=== PATIENT | male | born 1965 | race Caucasian/White ===

== ENCOUNTER 2018-01-14 09:32 | Observation (INO) | payer MEDICAID, OTHER ==
[2018-01-14] VITALS (11 sets, daily range): BP systolic 140–169; BP diastolic 84–97; PULSE 77–107; RESP 19–21; TEMP 98–98.5; O2SAT 95–98
[~2018-01-14] VITALS: Ht 177.8 cm; Wt 79.1 kg
[~2018-01-14 09:32] MED LIST: 1-ME1LIQ PO; LABE300 PO; LISI-360 PO; MULTCAP14 PO
[2018-01-14] MEDS ORDERED: LISI-519 PO (09:49)
[2018-01-14] MEDS ORDERED: METO100T PO (09:49)
--- NOTE | 2018-01-14 10:15 | RADRPT ---
EXAM DATE/TIME: 01/14/2018 10:02 [facility] COMPARISON: No previous studies available for comparison. INDICATIONS : Chest pain today. MEDICAL HISTORY : Hypertension. Left kidney cancer. SURGICAL HISTORY : Left nephrectomy. Kevlar pig graft for AAA. ENCOUNTER: Initial ACUITY: 1 day PAIN SCORE: 7/10 LOCATION: Bilateral chest FINDINGS: A single view of the chest demonstrates the lungs to be symmetrically aerated without evidence of mas s, infiltrate or effusion. The patient has an aortic stent graft with extensive soft tissue lateral a nd posterior to the stent . I do not have old films for comparison Osseous structures are intact. CONCLUSION: Patient has an aortic stent with extensive aortic tissue lateral and superior to the stent. Compariso n with old films helpful when old films are unavailable. If there is concern for dissection CTA shoul d be performed. Quinn Frost MD on January 14, 2018 at 10:14 Board Certified Radiologist. This report was verified electronically.
[2018-01-14 10:40] LABS: AUTOMATED NEUTROPHIL # 7.9 TH/MM3 (1.8-7.7); BASOPHIL # 0.1 TH/MM3 (0-0.2); BASOPHIL % 1.2 % (0.0-2.0); EOSINOPHIL # 0.3 TH/MM3 (0-0.4); EOSINOPHIL % 2.5 % (0.0-4.0); HEMATOCRIT 40.3 % (39.0-51.0); HEMOGLOBIN 13.7 GM/DL (13.0-17.0); LYMPH % 13.9 % (9.0-44.0); LYMPHOCYTE # 1.5 TH/MM3 (1.0-4.8); MEAN CELL VOLUME 82.1 FL (80.0-100.0); MEAN CORPUSCULAR HEMOGLOBIN 27.9 PG (27.0-34.0); MEAN CORPUSCULAR HGB CONC 33.9 % (32.0-36.0); MEAN PLATELET VOLUME 7.8 FL (7.0-11.0); MONO % 7.8 % (0.0-8.0); MONOCYTE # 0.8 TH/MM3 (0-0.9); NEUT % 74.6 % (16.0-70.0); PLATELET COUNT 424 TH/MM3 (150-450); RED BLOOD COUNT 4.91 MIL/MM3 (4.50-5.90); RED CELL DISTRIBUTION WIDTH 17.9 % (11.6-17.2); WHITE BLOOD COUNT 10.6 TH/MM3 (4.0-11.0)
[2018-01-14 11:11] LABS: BICARBONATE 23.9 MEQ/L (21.0-32.0); BLOOD UREA NITROGEN 15 MG/DL (7-18); CALCIUM 9.2 MG/DL (8.5-10.1); CHLORIDE 105 MEQ/L (98-107); CREATININE 1.03 MG/DL (0.60-1.30); GLOMERULAR FILTRATION RATE 75 ML/MIN (>89); GLUCOSE,RANDOM 94 MG/DL (74-106); SODIUM (NA) 137 MEQ/L (136-145); TROPONIN I LESS THAN 0.02 NG/ML (0.02-0.05)
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
[2018-01-14] MEDS ORDERED: IOHEXOL 350 MG/ML 10 ML VIAL (for RAD DIAG) IVCONTRAST ONE (12:49)
--- NOTE | 2018-01-14 13:44 | RADRPT ---
EXAM DATE/TIME: 01/14/2018 12:39 [facility] COMPARISON: No previous studies available for comparison. INDICATIONS : Chest pain. History of aortic dissection repair. IV CONTRAST: 95 cc Omnipaque 350 (iohexol) IV RADIATION DOSE: 16.78 CTDIvol (mGy) MEDICAL HISTORY : Aneurysm, abdominal. Hypertension. Aortic valve replacement, aortic dissection SURGICAL HISTORY : Nephrectomy, left. Splenectomy. ENCOUNTER: Initial ACUITY: 2 days PAIN SCALE: 5/10 LOCATION: Left chest TECHNIQUE: Volumetric scanning was performed using a multi-row detector CT scanner. The data was post processed with a variety of visualization algorithms including full volume maximum intensity projection, multi -planar sliding thin slab reformation, curved planar reformation, and surface rendering techniques. Using automated exposure control and adjustment of the mA and/or kV according to patient size, radiat ion dose was kept as low as reasonably achievable to obtain optimal diagnostic quality images. DICOM format image data is available electronically for review and comparison. FINDINGS: LUNGS: There is no consolidation or pneumothorax. No concerning pulmonary nodule is visualized. No pleural fluid is present. Mild emphysema. MEDIASTINUM: No abnormally enlarged lymph nodes by CT criteria. No axillary or hilar abnormalities are identified. ABDOMEN: The liver and spleen are free of focal defects. The gallbladder and pancreas demonstrate no abnormali ty. The adrenal glands are normal. The right kidney demonstrate no evidence of solid renal mass or hy dronephrosis. Right renal low densities. Left nephrectomy. No free fluid or abdominal masses are iden tified. No para-aortic adenopathy is seen. Diverticulosis. PELVIS: No evidence of free fluid or pelvic mass. No abnormally enlarged inguinal or retroperitoneal lymph no phyllis are present. The bladder is unremarkable. THORACIC AORTA: There is a stent graft within the distal aortic arch, isthmus and descending thoracic aorta. Aneurysm al sac measures 5.5 x 6.8 cm in the descending thoracic aorta. There may be [id number] leaks lenard g the distal descending thoracic aorta, however no noncontrast images are available for comparison. ABDOMINAL AORTA: The aorta is normal in caliber without aneurysm or dissection. The renal arteries are patent bilater ally. The proximal celiac and superior mesenteric arteries are patent and normal in diameter. PELVIC VESSELS: The internal iliac and external iliac vessels are patent without aneurysm or stenosis. CONCLUSION: 1. Stent graft within the distal arch and descending thoracic aorta. Aneurysmal sac measures 6.8 x 5 .5 cm. 2. 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 Oscar Burns MD on January 14, 2018 at 13:32 Board Certified Radiologist. This report was verified electronically.
[2018-01-14] MEDS ORDERED: NALOXONE HCL 0.4 MG/ML AMP IV PUSH PRN ×2 (15:00→18:30)
[2018-01-14] MEDS ORDERED: MAGNESIUM HYDROXIDE SUSP 30 ML CUP PO PRN (15:00)
[2018-01-14] MEDS ORDERED: BISACODYL 10 MG SUPP RECTAL PRN (15:00)
[2018-01-14] MEDS ORDERED: LACTULOSE SYRUP 20 GM/30 ML CUP PO PRN (15:00)
[2018-01-14] MEDS ORDERED: SODIUM CHLORIDE 0.9% FLUSH 10 ML FLUSH IV FLUSH PRN (15:00)
[2018-01-14] MEDS ORDERED: ONDANSETRON HCL 4 MG/2 ML VIAL IVP PRN (15:00)
[2018-01-14] MEDS ORDERED: SENNOSIDES 8.6 MG TAB PO PRN (15:00)
[2018-01-14] MEDS: SODIUM CHLOR 0.45% 1000 ML INJ 1,000 ML IV SCH (15:30)
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
[2018-01-14] MEDS ORDERED: ENALAPRILAT 1.25 MG/ML VIAL IV PUSH PRN (18:15)
[2018-01-14] MEDS ORDERED: MORPHINE SULFATE 2 MG/ML INJ IV PUSH PRN (18:30)
[2018-01-14] MEDS ORDERED: ACETAMINOPHEN/HYDROcodone 325 MG/5 MG TAB PO PRN (18:30)
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
[2018-01-14] MEDS ORDERED: ALPRAZolam 0.5 MG TAB PO ONE (20:30)
[2018-01-14] MEDS ORDERED: ASPIRIN EC 81 MG TABEC PO ONE (20:30)
[2018-01-14] MEDS ORDERED: amLODIPine BESYLATE 5 MG TAB PO ONE (20:30)
[2018-01-14] MEDS: METOPROLOL TARTRATE 100 MG TAB PO SCH (20:50)
[2018-01-14] MEDS: SODIUM CHLORIDE 0.9% FLUSH 10 ML FLUSH IV FLUSH SCH (20:51)
[2018-01-15] VITALS (25 sets, daily range): BP systolic 91–135; BP diastolic 51–83; PULSE 59–88; RESP 18–20; TEMP 97.2–98.3; O2SAT 95–97
[2018-01-15] MEDS: NITROGLYCERIN 2% OINT 1 GM PACKET TOPICAL SCH ×5 (02:38→23:08)
[2018-01-15] MEDS: SODIUM CHLOR 0.45% 1000 ML INJ 1,000 ML IV SCH ×3 (04:20→17:36)
[2018-01-15 07:28] LABS: AUTOMATED NEUTROPHIL # 7.2 TH/MM3 (1.8-7.7); BASOPHIL # 0.1 TH/MM3 (0-0.2); BASOPHIL % 1.4 % (0.0-2.0); EOSINOPHIL # 0.6 TH/MM3 (0-0.4); EOSINOPHIL % 6.1 % (0.0-4.0); HEMATOCRIT 40.3 % (39.0-51.0); HEMOGLOBIN 13.5 GM/DL (13.0-17.0); LYMPH % 14.4 % (9.0-44.0); LYMPHOCYTE # 1.5 TH/MM3 (1.0-4.8); MEAN CELL VOLUME 82.3 FL (80.0-100.0); MEAN CORPUSCULAR HEMOGLOBIN 27.5 PG (27.0-34.0); MEAN CORPUSCULAR HGB CONC 33.4 % (32.0-36.0); MONO % 9.3 % (0.0-8.0); NEUT % 68.8 % (16.0-70.0); PLATELET COUNT 404 TH/MM3 (150-450); RED BLOOD COUNT 4.89 MIL/MM3 (4.50-5.90); RED CELL DISTRIBUTION WIDTH 18.2 % (11.6-17.2); WHITE BLOOD COUNT 10.5 TH/MM3 (4.0-11.0)
[2018-01-15 07:47] LABS: ALBUMIN 3.3 GM/DL (3.4-5.0); AST (GOT) 12 U/L (15-37); BICARBONATE 24.5 MEQ/L (21.0-32.0); BLOOD UREA NITROGEN 13 MG/DL (7-18); CALCIUM 9.1 MG/DL (8.5-10.1); CHLORIDE 104 MEQ/L (98-107); CREATININE 0.91 MG/DL (0.60-1.30); GLOMERULAR FILTRATION RATE 87 ML/MIN (>89); GLUCOSE,RANDOM 84 MG/DL (74-106); SODIUM (NA) 138 MEQ/L (136-145)
[2018-01-15 07:52] LABS: ALKALINE PHOSPHATASE 81 U/L (45-117); ALT (GPT) 14 U/L (12-78); TOTAL BILIRUBIN ADULT 0.4 MG/DL (0.2-1.0); TOTAL PROTEIN 7.2 GM/DL (6.4-8.2)
[2018-01-15] MEDS: SODIUM CHLORIDE 0.9% FLUSH 10 ML FLUSH IV FLUSH SCH ×2 (09:00→21:00)
[2018-01-15] MEDS: ASPIRIN EC 81 MG TABEC PO SCH (09:04)
[2018-01-15] MEDS: METOPROLOL TARTRATE 100 MG TAB PO SCH ×2 (09:04→21:00)
[2018-01-15] MEDS: amLODIPine BESYLATE 5 MG TAB PO SCH (09:04)
[2018-01-15] MEDS: LISINOPRIL 5 MG TAB PO SCH (09:05)
[2018-01-15] MEDS ORDERED: ALPRAZolam 0.25 MG TAB PO ONE (11:15)
--- NOTE | 2018-01-15 12:07 | EKG ---
Date Performed: 01/14/2018 Time Performed: 09:40:51 PTAGE: 52 years EKG: SINUS TACHYCARDIA NONSPECIFIC T-WAVE ABNORMALITY ABNORMAL RHYTHM ECG PREVIOUS TRACING 10/20/14 When compared to the prior EKG, the patient is now tachycardic. DOCTOR: Nancy Lopez Interpretating Date/Time 01/15/2018 12:05:58
--- NOTE | 2018-01-15 12:07 | EKG ---
Date Performed: 01/14/2018 Time Performed: 16:51:28 PTAGE: 52 years EKG: Sinus arrhythmia Normal ECG PREVIOUS TRACING : 01/14/18 When compared to prior EKG, the patient is no longer tachycardic. DOCTOR: Nancy Lopez Interpretating Date/Time 01/15/2018 12:06:32
--- NOTE | 2018-01-15 12:32 | MB ---
cc: Naga Lee MD DATE OF CONSULT: HISTORY OF PRESENT ILLNESS: Francois is a very pleasant 52-year-old gentleman status post aortic arch repair due to aneurysm with a graft. HeDeveloped chest pain today like a fist in his left chest, dull pressure like, severe, currently mild to moderate and he is resting comfortably in bedin no acute distress, getting ready to eat dinner. He does smoke. His chest pain is associated with some dyspnea. He otherwise denies any fevers, chills, cough, GI or bleeding, PND or orthopnea. PAST MEDICAL HISTORY: As per history of present illness. He has a history of thoracic aortic aneurysm with dissection, left kidney cancer, status post Keflar pig graft to the aorta for aneurysm repair, status post cholecystectomy, splenectomy, left kidney removed. SOCIAL HISTORY: He drinks alcohol. He smokes half pack of cigarettes a day and he smokes marijuana. ALLERGIES: NONE. MEDICATIONS PRIOR TO ADMISSION: Metoprolol 100 mg b.i.d., lisinopril 5 mg daily. MEDICATIONS IN THE HOSPITAL: Lisinopril 5 mg daily, metoprolol 100 b.i.d. PHYSICAL EXAMINATION: VITAL SIGNS: Blood pressure 148/97, pulse 80, respiratory rate 21, temperature 98.0. GENERAL: He is alert and oriented x 3 in no acute distress. NECK: Supple, no JVD, no bruit. CARDIOVASCULAR: Normal S1, S2, no murmurs, rubs or gallops. LUNGS: Clear to auscultation bilaterally. ABDOMEN: Soft, nontender, nondistended with positive bowel sounds. EXTREMITIES: No lower extremity edema. LABORATORY DATA: White count 10.6, hemoglobin 13.7, hematocrit 40.3, platelet count 424. Troponin less than 0.02 x 2. Sodium 137, potassium 4.4, chloride 105, bicarb 23.9, BUN 15, creatinine 1.03. DIAGNOSTIC DATA: CTA of the aorta stent graft within the distal arch of descending thoracic aorta aneurysmal sac measuring 6.8 x 5.5 cm, probable type 1 endograft leaks within the distal descending thoracic aorta within the aneurysmal sac. Chest x-ray: "The patient has an aortic stent with extensive aortic tissue lateral and superior to the stent, comparison with old films helpful but old films are unavailable. If there is concern for dissection CTA should be performed." Initial EKG shows sinus tachycardia at 105 beats per minute otherwise normal and repeat EKG shows normal sinus rhythm at 75 beats per minute, repolarization abnormality. FINAL DIAGNOSES: 1. Chest pain. 2. Tobacco use. 3. Thoracic aortic aneurysm repair with type 1 endoleak. 4. Hypertension. 5. History of renal cell carcinoma, status post nephrectomy. DISCUSSION: At this point in time the patient has no objective evidence of ischemia. He has a type 1 endoleak. Will need to discuss with cardiothoracic surgery risks and benefits of starting aspirin 81 mg daily. Strongly recommend smoking cessation. Will add nitro paste and Norvasc for better blood pressure control. As long as he is cleared by cardiothoracic surgery, recommend a Lexiscan sestamibi. Will try to treat him medically and noninvasively due to his history of nephrectomy. Naga Lee MD AWC/rt , 07:58 PM , 09:17 PM
--- NOTE | 2018-01-15 13:25 | PD.CARD.PN ---
Subjective Subjective Remarks chest pain better Objective Medications Current Medications Medications (Trade) Dose Ordered Sig/Alber Route Start Time Stop Time Status Last Admin Sodium Chloride 1,000 ml @ 75 mls/hr [id number] IV 01/14/18 15:00 01/15/18 06:45 (NS Flush) 2 ml UNSCH PRN IV FLUSH 01/14/18 15:00 (NS Flush) 2 ml BID IV FLUSH 01/14/18 21:00 01/14/18 20:51 (Zofran Inj) 4 mg Q6H PRN IVP 01/14/18 15:00 (Milk Of Magnesia Liq) 30 ml Q12H PRN PO 01/14/18 15:00 (Senokot) 17.2 mg Q12H PRN PO 01/14/18 15:00 (Dulcolax Supp) 10 mg DAILY PRN RECTAL 01/14/18 15:00 (Lactulose Liq) 30 ml DAILY PRN PO 01/14/18 15:00 (Prinivil) 5 mg DAILY PO 01/15/18 09:00 01/15/18 09:05 (Lopressor) 100 mg BID PO 01/14/18 21:00 01/15/18 09:04 (Vasotec Inj) 1.25 mg Q6H PRN IV PUSH 01/14/18 18:15 ([place] 5-325 Mg) 1 tab Q4H PRN PO 01/14/18 18:30 ([place] 7.5-325 Mg) 1 tab Q4H PRN PO 01/14/18 18:30 (Narcan Inj) 0.4 mg UNSCH PRN IV PUSH 01/14/18 18:30 (Morphine Inj) 4 mg Q3H PRN IV PUSH 01/14/18 19:15 (Nitroglycerin 2% Oint) 2 inch Q6HR TOPICAL 01/15/18 00:00 01/15/18 11:19 (Norvasc) 5 mg DAILY PO 01/15/18 09:00 01/15/18 09:04 (Ecotrin Ec) 81 mg DAILY PO 01/15/18 09:00 01/15/18 09:04 Vital Signs / I&O Vital Signs Date Time Temp Pulse Resp B/P (MAP) Pulse Ox O2 Delivery O2 Flow Rate FiO2 01/15/18 12:42 68 01/15/18 12:40 97.4 68 20 130/70 (90) 01/15/18 11:07 88 01/15/18 10:05 86 01/15/18 09:11 98.0 78 20 128/74 (92) 96 01/15/18 09:06 88 01/15/18 08:21 78 01/15/18 06:00 60 01/15/18 05:00 62 01/15/18 04:00 98.1 59 20 135/80 (98) 96 01/15/18 04:00 59 01/15/18 03:00 71 01/15/18 02:00 62 01/15/18 01:00 60 01/15/18 00:00 98.3 69 20 123/83 (96) 97 01/15/18 00:00 61 01/14/18 23:00 77 01/14/18 22:00 78 01/14/18 21:00 82 01/14/18 20:00 98.4 79 20 169/94 (119) 96 01/14/18 20:00 79 01/14/18 19:00 88 01/14/18 17:10 98.0 80 21 148/97 (114) 95 01/14/18 16:00 01/14/18 15:30 91 19 148/90 (109) 97 Room Air 01/14/18 14:00 90 19 140/87 (104) 96 Room Air I/O 01/14/18 01/14/18 01/14/18 01/15/18 01/15/18 01/15/18 07:00 15:00 23:00 07:00 15:00 23:00 Intake Total 0 ml 0 ml Output Total 1000 ml Balance -1000 ml 0 ml Intake Oral 0 ml IV Total 0 ml Output Urine Total 1000 ml # Voids 3 # Bowel Movements 0 Physical Exam GENERAL: SKIN: Warm and dry. HEAD: Normocephalic. EYES: No scleral icterus. No injection or drainage. NECK: Supple, trachea midline. No JVD or lymphadenopathy. CARDIOVASCULAR: Regular rate and rhythm without murmurs, gallops, or rubs. RESPIRATORY: Breath sounds equal bilaterally. No accessory muscle use. GASTROINTESTINAL: Abdomen soft, non-tender, nondistended. MUSCULOSKELETAL: No cyanosis, or edema. BACK: Nontender without obvious deformity. No CVA tenderness. Laboratory Laboratory Tests Test 01/14/18 15:35 01/14/18 19:48 01/15/18 06:23 Troponin I LESS THAN 0.02 NG/ML LESS THAN 0.02 NG/ML White Blood Count 10.5 TH/MM3 Red Blood Count 4.89 MIL/MM3 Hemoglobin 13.5 GM/DL Hematocrit 40.3 % Mean Corpuscular Volume 82.3 FL Mean Corpuscular Hemoglobin 27.5 PG Mean Corpuscular Hemoglobin Concent 33.4 % Red Cell Distribution Width 18.2 % Platelet Count 404 TH/MM3 Mean Platelet Volume 8.0 FL Neutrophils (%) (Auto) 68.8 % Lymphocytes (%) (Auto) 14.4 % Monocytes (%) (Auto) 9.3 % Eosinophils (%) (Auto) 6.1 % Basophils (%) (Auto) 1.4 % Neutrophils # (Auto) 7.2 TH/MM3 Lymphocytes # (Auto) 1.5 TH/MM3 Monocytes # (Auto) 1.0 TH/MM3 Eosinophils # (Auto) 0.6 TH/MM3 Basophils # (Auto) 0.1 TH/MM3 CBC Comment DIFF FINAL Differential Comment Blood Urea Nitrogen 13 MG/DL Creatinine 0.91 MG/DL Random Glucose 84 MG/DL Total Protein 7.2 GM/DL Albumin 3.3 GM/DL Calcium Level 9.1 MG/DL Alkaline Phosphatase 81 U/L Aspartate Amino Transf (AST/SGOT) 12 U/L Alanine Aminotransferase (ALT/SGPT) 14 U/L Total Bilirubin 0.4 MG/DL Sodium Level 138 MEQ/L Potassium Level 3.9 MEQ/L Chloride Level 104 MEQ/L Carbon Dioxide Level 24.5 MEQ/L Anion Gap 10 MEQ/L Estimat Glomerular Filtration Rate 87 ML/MIN Assessment and Plan Problem List: (1) Chest pain ICD Codes: R07.9 - Chest pain, unspecified Status: Acute (2) Hypertension ICD Codes: I10 - Essential (primary) hypertension Status: Acute (3) Leakage of aortic graft ICD Codes: T82.330A - Leakage of aortic (bifurcation) graft (replacement), initial encounter Status: Acute Assessment and Plan 1.) chest pain - improved with better bp control, continue norvasc, ntp, metoprolol, lisinopril; rec lexiscan sestamibi, f/u echo 2.) Thoracic aneurysm - with type I endoleak, f/u Dr Hopper, continue aspirin, metoprolol, start lipitor, dc tobacco Problem Qualifiers (1) Chest pain: Qualified Codes: R07.9 - Chest pain, unspecified (2) Hypertension: Qualified Codes: I10 - Essential (primary) hypertension (3) Leakage of aortic graft: Qualified Codes: T82.330A - Leakage of aortic (bifurcation) graft (replacement) , initial encounter Naga Lee MD Jan 15, 2018 13:25
--- NOTE | 2018-01-15 14:24 | ECHRPT ---
Indication: chest pain CONCLUSIONS The left ventricular systolic function is hyperdynamic with an estimated ejection fraction in the ra nge of 65- 70%. Normal left ventricular size. Wall thickness is normal. No regional wall motion abnormalities are present. Mild aortic dilatation at the level of the sinuses of Valsalva. Mildly dilated proximal ascending aorta. Severely dilated descending thoracic aorta. BP: 128 / 74 HR: 86 Rhythm: Sinus MEASUREMENTS (Male / Female) Normal Values Technical Quality:Good 2D ECHO LV Diastolic Diameter PLAX 4.2 cm 4.2 - 5.9 / 3.9 - 5.3 cm LV Systolic Diameter PLAX 2.8 cm IVS Diastolic Thickness 1.1 cm 0.6 - 1.0 / 0.6 - 0.9 cm LVPW Diastolic Thickness 1.1 cm 0.6 - 1.0 / 0.6 - 0.9 cm LV Relative Wall Thickness 0.5 LVOT Diameter 2.0 cm LA Systolic Diameter LX 2.7 cm 3.0 - 4.0 / 2.7 - 3.8 cm M-MODE Aortic Root Diameter MM 3.4 cm LA Systolic Diameter MM 1.9 cm LA Ao Ratio MM 0.6 AV Cusp Separation MM 2.2 cm DOPPLER AV Peak Velocity 111.0 cm/s AV Peak Gradient 4.9 mmHg LVOT Peak Velocity 85.4 cm/s LVOT Peak Gradient 2.9 mmHg AV Area Cont Eq pk 2.4 cm MV Area PHT 2.8 cm Mitral E Point Velocity 50.3 cm/s Mitral A Point Velocity 47.4 cm/s Mitral E to A Ratio 1.1 LV E' Lateral Velocity 9.4 cm/s Mitral E to LV E' Lateral Ratio 5.4 LV E' Septal Velocity 5.3 cm/s Mitral E to LV E' Septal Ratio 9.6 PV Peak Velocity 77.4 cm/s PV Peak Gradient 2.4 mmHg FINDINGS LEFT VENTRICLE The left ventricular systolic function is hyperdynamic with an estimated ejection fraction in the ra nge of 65- 70%. Normal left ventricular size. Wall thickness is normal. No regional wall motion abnormalities are present. RIGHT VENTRICLE Normal right ventricular size and systolic function. LEFT ATRIUM The left atrial size is normal. RIGHT ATRIUM The right atrial size is normal. ATRIAL SEPTUM Normal atrial septal thickness without atrial level shunting by limited color doppler interrogation. AORTA Mild aortic dilatation at the level of the sinuses of Valsalva. Mildly dilated proximal ascending aorta. Severely dilated descending thoracic aorta. MITRAL VALVE Structurally normal mitral valve. No mitral valve stenosis or regurgitation. AORTIC VALVE Trileaflet aortic valve. No aortic valve stenosis or regurgitation. TRICUSPID VALVE Structurally normal tricuspid valve. No tricuspid valve stenosis or regurgitation. PULMONARY VALVE The pulmonary valve is not well visualized. VESSELS The inferior vena cava is normal in size. PERICARDIUM No pericardial effusion. Naga Lee MD, FACC, [facility] (Electronically Signed) Final Date:15 January 2018 14:23
[2018-01-15] MEDS ORDERED: ATORVASTATIN 10 MG TAB PO ONE (14:30)
--- NOTE | 2018-01-15 15:42 | HHI.PR ---
Subjective Remarks Patient seen this afternoon around 1 PM. Says he is feeling all right. Denies any chest pain currently. Denies any nausea or vomiting. Objective Vital Signs Date Time Temp Pulse Resp B/P (MAP) Pulse Ox O2 Delivery O2 Flow Rate FiO2 01/15/18 14:52 01/15/18 14:15 78 01/15/18 13:48 68 01/15/18 12:42 68 01/15/18 12:40 97.4 68 20 130/70 (90) 01/15/18 11:07 88 01/15/18 10:05 86 01/15/18 09:11 98.0 78 20 128/74 (92) 96 01/15/18 09:06 88 01/15/18 08:21 78 01/15/18 06:00 60 01/15/18 05:00 62 01/15/18 04:00 98.1 59 20 135/80 (98) 96 01/15/18 04:00 59 01/15/18 03:00 71 01/15/18 02:00 62 01/15/18 01:00 60 01/15/18 00:00 98.3 69 20 123/83 (96) 97 01/15/18 00:00 61 01/14/18 23:00 77 01/14/18 22:00 78 01/14/18 21:00 82 01/14/18 20:00 98.4 79 20 169/94 (119) 96 01/14/18 20:00 79 01/14/18 19:00 88 01/14/18 17:10 98.0 80 21 148/97 (114) 95 01/14/18 16:00 I/O 01/14/18 01/14/18 01/14/18 01/15/18 01/15/18 01/15/18 07:00 15:00 23:00 07:00 15:00 23:00 Intake Total 0 ml 0 ml Output Total 1000 ml Balance -1000 ml 0 ml Intake Oral 0 ml IV Total 0 ml Output Urine Total 1000 ml # Voids 3 # Bowel Movements 0 Result Diagram: 01/15/1862201/15/18622 Objective Remarks GENERAL: Patient sitting up in bed. Appears comfortable. Alert and oriented 3. SKIN: Warm and dry. HEAD: Normocephalic. EYES: No scleral icterus. No injection or drainage. NECK: Supple, trachea midline. No JVD or lymphadenopathy. CARDIOVASCULAR: Regular rate and rhythm without murmurs, gallops, or rubs. RESPIRATORY: Breath sounds equal bilaterally. No accessory muscle use. GASTROINTESTINAL: Abdomen soft, non-tender, nondistended. MUSCULOSKELETAL: No cyanosis, or edema. BACK: Nontender without obvious deformity. No CVA tenderness. A/P Assessment and Plan //Chest pain //Endovascular aortic aneurysmal stent leak. = CT chest and abdomen with thoracic abdominal aortic aneurysm with endovascular stent, possible endovascular stent leak. Vascular surgery consulted and following. Appreciate assistance. Will monitor blood pressure closely. = EKG sinus rhythm with no ST elevation. We will monitor EKGs and troponins. Troponins negative so far. = Patient reports history of previous nonnegative stress test. Will request outside records. Consult cardiology. = Patient cleared for discharge by vascular surgery. Follow-up with vascular surgery as outpatient. = Chest pain has resolved. Will order Lexiscan as per cardiology. Appreciate assistance. //Tobacco abuse. Cessation counseling provided. Discharge Planning Discharge when cleared by cardiology. [place] scan pending. Ray Kinney MD Jan 15, 2018 15:42
[2018-01-15] MEDS: ACETAMINOPHEN/HYDROcodone 325 MG/7.5 MG TAB PO PRN (19:52)
[2018-01-16] VITALS (24 sets, daily range): BP systolic 120–147; BP diastolic 71–96; PULSE 54–100; RESP 18–20; TEMP 98–98.4; O2SAT 95–98
[2018-01-16] MEDS: ACETAMINOPHEN/HYDROcodone 325 MG/7.5 MG TAB PO PRN ×2 (03:23→14:26)
[2018-01-16] MEDS: NITROGLYCERIN 2% OINT 1 GM PACKET TOPICAL SCH ×3 (06:00→17:23)
[2018-01-16] MEDS: SODIUM CHLORIDE 0.9% FLUSH 10 ML FLUSH IV FLUSH SCH ×2 (09:00→19:57)
[2018-01-16] MEDS: METOPROLOL TARTRATE 100 MG TAB PO SCH ×2 (09:04→19:57)
[2018-01-16] MEDS: SODIUM CHLOR 0.45% 1000 ML INJ 1,000 ML IV SCH ×2 (09:04→20:05)
[2018-01-16] MEDS: amLODIPine BESYLATE 5 MG TAB PO SCH (09:05)
[2018-01-16] MEDS: LISINOPRIL 5 MG TAB PO SCH (09:05)
[2018-01-16] MEDS: ASPIRIN EC 81 MG TABEC PO SCH (09:05)
[2018-01-16] MEDS ORDERED: REGADENOSON INJ 0.4 MG/5 ML SYR ONE (11:30)
--- NOTE | 2018-01-16 14:18 | RADRPT ---
EXAM DATE/TIME: 01/16/2018 11:17 [place] COMPARISON: No previous studies available for comparison. INDICATIONS : Chest pain. Abnormal EKG. DOSE: 25.4 mCi Tc99m Myoview at stress. 8.8 mCi Tc99m Myoview at rest. 0.4 mg Lexiscan STRESS SYMPTOMS: Shortness of breath, chest pressure. EJECTION FRACTION: 43% MEDICAL HISTORY : Aneurysm, abdominal. Hypertension. Left kidney cancer. SURGICAL HISTORY : Splenectomy. Cholecystectomy. Abdominal aortic aneurysm repair. ENCOUNTER: Initial ACUITY: 1 day PAIN SCALE: 3/10 LOCATION: chest TECHNIQUE: The patient underwent pharmacologic stress with infusion of prescribed dose. Continuous ECG tracing was monitored during stress. Gated SPECT imaging was performed after stress and conventional SPECT i maging was performed at rest. The examination was performed on a SPECT/CT scanner, both attenuation and non-corrected datasets were reviewed. FINDINGS: The best perfused myocardium is the anterior and lateral wall. There are no fixed defects to suggest infarction. There is no diffusion suggest ischemia. Ejection fraction is globally depressed at 43 %. CONCLUSION: Depressed ejection fraction of 43% with global hypokinesis. Negative for stress-induced ischemia.. RISK CATEGORY: Intermediate (1-3% Annual Mortality Rate) Fabricio Cifuentes MD FACR on January 16, 2018 at 14:14 Board Certified Radiologist. This report was verified electronically.
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
--- NOTE | 2018-01-16 16:22 | PD.CARD.PN ---
Subjective Subjective Remarks chest pain better Objective Medications Current Medications Medications (Trade) Dose Ordered Sig/Alber Route Start Time Stop Time Status Last Admin Sodium Chloride 1,000 ml @ 75 mls/hr [id number] IV 01/14/18 15:00 01/16/18 09:04 (NS Flush) 2 ml UNSCH PRN IV FLUSH 01/14/18 15:00 (NS Flush) 2 ml BID IV FLUSH 01/14/18 21:00 01/14/18 20:51 (Zofran Inj) 4 mg Q6H PRN IVP 01/14/18 15:00 (Milk Of Magnesia Liq) 30 ml Q12H PRN PO 01/14/18 15:00 (Senokot) 17.2 mg Q12H PRN PO 01/14/18 15:00 (Dulcolax Supp) 10 mg DAILY PRN RECTAL 01/14/18 15:00 (Lactulose Liq) 30 ml DAILY PRN PO 01/14/18 15:00 (Prinivil) 5 mg DAILY PO 01/15/18 09:00 01/16/18 09:05 (Lopressor) 100 mg BID PO 01/14/18 21:00 01/16/18 09:04 (Vasotec Inj) 1.25 mg Q6H PRN IV PUSH 01/14/18 18:15 ([place] 5-325 Mg) 1 tab Q4H PRN PO 01/14/18 18:30 ([place] 7.5-325 Mg) 1 tab Q4H PRN PO 01/14/18 18:30 01/16/18 14:26 (Narcan Inj) 0.4 mg UNSCH PRN IV PUSH 01/14/18 18:30 (Morphine Inj) 4 mg Q3H PRN IV PUSH 01/14/18 19:15 (Nitroglycerin 2% Oint) 2 inch Q6HR TOPICAL 01/15/18 00:00 01/16/18 14:26 (Norvasc) 5 mg DAILY PO 01/15/18 09:00 01/16/18 09:05 (Ecotrin Ec) 81 mg DAILY PO 01/15/18 09:00 01/16/18 09:05 (Lipitor) 10 mg HS PO 01/16/18 21:00 Vital Signs / I&O Vital Signs Date Time Temp Pulse Resp B/P (MAP) Pulse Ox O2 Delivery O2 Flow Rate FiO2 01/16/18 15:00 74 01/16/18 14:19 98.2 74 20 146/90 (108) 98 01/16/18 14:00 70 01/16/18 13:00 66 01/16/18 10:00 74 01/16/18 09:00 66 01/16/18 08:55 98.0 66 20 147/96 (113) 95 01/16/18 07:00 91 01/16/18 06:00 65 01/16/18 05:03 75 01/16/18 04:27 17 01/16/18 04:02 56 01/16/18 03:01 76 01/16/18 03:00 98.1 55 18 120/88 (99) 97 01/16/18 02:05 62 01/16/18 01:03 67 01/16/18 00:00 54 01/15/18 23:00 67 01/15/18 23:00 97.2 67 18 91/51 (64) 96 01/15/18 22:00 63 01/15/18 21:00 74 01/15/18 20:00 88 01/15/18 19:00 83 01/15/18 19:00 97.8 85 18 96/59 (71) 95 01/15/18 18:08 80 01/15/18 17:34 84 I/O 01/15/18 01/15/18 01/15/18 01/16/18 01/16/18 01/16/18 07:00 15:00 23:00 07:00 15:00 23:00 Intake Total 0 ml 0 ml 240 ml 950 ml Output Total 1000 ml 750 ml Balance -1000 ml 0 ml -510 ml 950 ml Intake Oral 0 ml 240 ml IV Total 0 ml 950 ml Output Urine Total 1000 ml 750 ml # Voids 3 # Bowel Movements 0 Physical Exam GENERAL: SKIN: Warm and dry. HEAD: Normocephalic. EYES: No scleral icterus. No injection or drainage. NECK: Supple, trachea midline. No JVD or lymphadenopathy. CARDIOVASCULAR: Regular rate and rhythm without murmurs, gallops, or rubs. RESPIRATORY: Breath sounds equal bilaterally. No accessory muscle use. GASTROINTESTINAL: Abdomen soft, non-tender, nondistended. MUSCULOSKELETAL: No cyanosis, or edema. BACK: Nontender without obvious deformity. No CVA tenderness. Imaging Last 24 hours Impressions Myocardial Perfusion Scan Nuc Med 01/16/18 0000 Signed Impressions: Service Date/Time: Tuesday, January 16, 2018 11:17 - CONCLUSION: Depressed ejection fraction of 43%% with global hypokinesis. Negative for stress- induced ischemia.. RISK CATEGORY: Intermediate (1-3%% Annual Mortality Rate) Fabricio Cifuentes MD FACR Assessment and Plan Problem List: (1) Chest pain ICD Codes: R07.9 - Chest pain, unspecified Status: Acute (2) Hypertension ICD Codes: I10 - Essential (primary) hypertension Status: Acute (3) Leakage of aortic graft ICD Codes: T82.330A - Leakage of aortic (bifurcation) graft (replacement), initial encounter Status: Acute Assessment and Plan 1.) chest pain - improved with better bp control, continue norvasc, ntp, metoprolol, lisinopril; rec lexiscan sestamibi, no ischemia on mps, ok to dc from cv standpoint 2.) Thoracic aneurysm - with type I endoleak, f/u Dr Hopper, continue aspirin, metoprolol, start lipitor, dc tobacco Problem Qualifiers (1) Chest pain: Qualified Codes: R07.9 - Chest pain, unspecified (2) Hypertension: Qualified Codes: I10 - Essential (primary) hypertension (3) Leakage of aortic graft: Qualified Codes: T82.330A - Leakage of aortic (bifurcation) graft (replacement) , initial encounter Naga Lee MD Jan 16, 2018 16:22
[2018-01-16] MEDS: MORPHINE SULFATE 4 MG/ML INJ IV PUSH PRN (20:01)
[2018-01-16] MEDS ORDERED: ATORVASTATIN 10 MG TAB PO SCH (21:00)
[2018-01-17] VITALS (17 sets, daily range): BP systolic 91–187; BP diastolic 59–121; PULSE 58–72; RESP 18–19; TEMP 98–98.3; O2SAT 95–98
[2018-01-17] MEDS: NITROGLYCERIN 2% OINT 1 GM PACKET TOPICAL SCH ×2 (05:04)
[2018-01-17] MEDS: MORPHINE SULFATE 4 MG/ML INJ IV PUSH PRN (05:04)
[2018-01-17] MEDS: METOPROLOL TARTRATE 100 MG TAB PO SCH (09:27)
[2018-01-17] MEDS: ASPIRIN EC 81 MG TABEC PO SCH (09:27)
[2018-01-17] MEDS: amLODIPine BESYLATE 5 MG TAB PO SCH (09:28)
[2018-01-17] MEDS: SODIUM CHLORIDE 0.9% FLUSH 10 ML FLUSH IV FLUSH SCH (09:28)
[2018-01-17] MEDS: LISINOPRIL 5 MG TAB PO SCH (09:28)
[2018-01-17] MEDS ORDERED: LIPI10TA PO (11:13)
[2018-01-17] MEDS ORDERED: ECASA81 PO (11:13)
[2018-01-17] MEDS ORDERED: METO100T PO (11:13)
[2018-01-17] MEDS ORDERED: LISI-519 PO (11:13)
[2018-01-17] MEDS ORDERED: ISOSORBIDE MONONITRATE 30 MG CR TAB (IMDUR) PO ONE ×2 (11:15→14:00)
[2018-01-17] MEDS ORDERED: ISOS30TA3 PO ×2 (11:15→14:14)
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
[2018-01-18] MEDS ORDERED: ISOSORBIDE MONONITRATE 30 MG CR TAB (IMDUR) PO SCH ×2 (07:00)
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
== END 2018-01-17 14:35 | disposition home or self-care (01) ==
LOC: NEPC 09:32 → NEDA 14:54 → HCIS 16:06
PROVIDERS: ADMIT Internal Medicine; ATTEND Internal Medicine
DX: R07.89 Other chest pain (principal); T82.330A Leakage of aortic (bifurcation) graft (replacement), initial encounter; R06.02 Shortness of breath; R06.00 Dyspnea, unspecified; F43.20 Adjustment disorder, unspecified; I10 Essential (primary) hypertension; I71.6 Thoracoabdominal aortic aneurysm, without rupture; I71.2 Thoracic aortic aneurysm, without rupture; R00.0 Tachycardia, unspecified; I49.9 Cardiac arrhythmia, unspecified; F17.210 Nicotine dependence, cigarettes, uncomplicated; Z59.0 Homelessness; Z85.528 Personal history of other malignant neoplasm of kidney; Z90.5 Acquired absence of kidney; Z90.81 Acquired absence of spleen
CPT/HCPCS: 71045; 71275; 74174; 78452; 80048; 80053; 82550; 82552; 84484; 85025; 93005; 93017; 93306; 96361; 96374; 96376; 97162; 99285; A9502; G0378; J2270; J2785; Q9967

== ENCOUNTER 2018-02-04 06:31 | Inpatient (IN) | payer MEDICAID ==
[~2018-02-04 06:31] MED LIST changes: -1-ME1LIQ PO; +ECASA81 PO; +ISOS30TA3 PO; -LABE300 PO; +LIPI10TA PO; -LISI-360 PO; +LISI-519 PO; +METO100T PO; -MULTCAP14 PO
[2018-02-04] MEDS ORDERED: CHLORHEXIDINE GLUCONATE 2 % 1 PACK (2 CLOTHS) TOPICAL PRN (07:15)
[2018-02-04] MEDS ORDERED: METOPROLOL TARTRATE 25 MG TAB PO PRN (07:15)
[2018-02-04] MEDS ORDERED: SODIUM CHLORID 0.9% 500 ML IV PRN (07:15)
[2018-02-04] MEDS ORDERED: POVIDONE IODINE 5% (ANTISEPSIS KIT) 4 APPLICATIONS EACH NARE PRN (07:15)
[2018-02-04] MEDS ORDERED: LACTATED RINGER'S 1000 ML IV PRN (07:15)
[2018-02-04] MEDS ORDERED: PROTAMINE SULFATE 50 MG/5 ML VIAL ONE (07:48)
[2018-02-04] MEDS ORDERED: HEPARIN-NS/PF INJ 500 ML ONE (07:49)
[2018-02-04] MEDS ORDERED: HEPARIN SODIUM - IV 10,000 UNITS/10 ML VIAL ONE (07:49)
[2018-02-04] MEDS ORDERED: ceFAZolin 2 GM PREMIX 50 ML ONE (07:49)
--- NOTE | 2018-02-04 08:35 | PD.VS.PN ---
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 I have explained the procedure in detail and discussed the risks, benefits, and potential complications. All questions have been answered. Isaiah Hopper MD Feb 04, 2018 08:35
[2018-02-04] MEDS ORDERED: fentaNYL CITRATE 250 MCG/5 ML AMP ONE (09:15)
[2018-02-04] MEDS ORDERED: NITROGLYCERIN INJ 5 ML ONE (09:53)
[2018-02-04] MEDS ORDERED: IOHEXOL 300 INJ 50 ML IV ONE (09:55)
--- NOTE | 2018-02-04 10:32 | HHI.PR ---
cc: Isaiah Hopper MD Immediate Post Op Note Procedure Date: Feb 04, 2018 Pre Op Diagnosis: Type Ia endoleak after TEVAR Post Op Diagnosis: Type Ia endoleak after TEVAR Surgeon: Isaiah Hopper Consumer Insights Specialist(s): none Procedure: 1. TEVAR ([id number]) 2. IVUS 3. L BILINGUAL LEGAL ASSISTANT Perclose 4. R BILINGUAL LEGAL ASSISTANT Angioseal Findings: successful deployment of proximal device Additional Information: good pedal perfusion Complications: none Specimen(s) removed: none Estimated blood loss: 75mL Anesthesia: General Drains: None Fluids: 1900mL IVF Urinary Output (mLs): 45 Patient to: CVICU Patient Condition: Good Implant/Devices: SEE IMPLANT LOG (if applicable) Date/Time of Procedure: SEE SURGICAL CARE RECORD Isaiah Hopper MD Feb 04, 2018 10:32
[2018-02-04] MEDS ORDERED: MAGNESIUM HYDROXIDE SUSP 30 ML CUP PO PRN (10:45)
[2018-02-04] MEDS ORDERED: SENNOSIDES 8.6 MG TAB PO PRN (10:45)
[2018-02-04] MEDS ORDERED: LACTULOSE SYRUP 20 GM/30 ML CUP PO PRN (10:45)
[2018-02-04] MEDS ORDERED: BISACODYL 10 MG SUPP RECTAL PRN (10:45)
[2018-02-04 11:00] VITALS: BP_SYST 147; BP_SYST 152; BP_DIAS 82; BP_DIAS 90; PULSE 75; PULSE 77; RESP 14; TEMP 97.5; O2SAT 97
[2018-02-04] MEDS ORDERED: ROCURONIUM INJ 50 MG/5 ML SYRINGE IV PUSH ONE (12:00)
[2018-02-04] MEDS ORDERED: ePHEDrine/NS 25 MG/5 ML SYRINGE IV ONE (12:00)
[2018-02-04] MEDS ORDERED: NORMOSOL R INJ 2,000 ML IV ONE (12:00)
[2018-02-04] MEDS ORDERED: PHENYLEPH/NS 1000 MCG/10 ML SYR IV ONE (12:00)
[2018-02-04] MEDS ORDERED: NEOSTIGMINE 5 MG/5 ML SYRINGE IV PUSH ONE (12:00)
[2018-02-04] MEDS ORDERED: ONDANSETRON HCL 4 MG/2 ML VIAL IV ONE (12:00)
[2018-02-04] MEDS ORDERED: GLYCOPYRROLATE 1 MG/5 ML SYRINGE IV PUSH ONE (12:00)
[2018-02-04] MEDS ORDERED: LIDOCAINE HCL 1% PF 5 ML SYRINGE OTHER ONE (12:00)
[2018-02-04] MEDS ORDERED: SODIUM CHLORIDE 0.9% 20 ML VIAL IV ONE (12:00)
[2018-02-04] MEDS ORDERED: PROPOFOL 200 MG/20 ML AMP IV ONE (12:00)
[2018-02-04] MEDS ORDERED: NS 500 ML (EXCEL BAG) INJ 500 ML IV ONE (12:00)
--- NOTE | 2018-02-04 12:38 | MP ---
cc: Isaiah Hopper MD DATE OF OPERATION: 02/04/2018 PREOPERATIVE DIAGNOSIS: Type 1A endoleak after thoracic endovascular aortic/aneurysm repair (TEVAR). 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 PROCEDURE PERFORMED: 1. Thoracic endovascular aortic including left subclavian artery coverage. 2. Intravascular ultrasound. 3. Left common femoral artery Perclose for a 25-German catheter. 5. Right common femoral artery Angio-Seal. ATTENDING SURGEON: Isaiah Hopper MD ANESTHESIA: General. INDICATIONS: Mr. Valdivia is a 52-year-old gentleman who had a carotid subclavian TEVAR done in outside hospital. He then had an open thoracoabdominal aneurysm repaired a year and a half ago by me and he now presents with a Type 1A endoleak. He appears to have a couple of centimeters of proximal fixation to be gained by a thoracic endovascular extension. He was taken to the operating room for this. DESCRIPTION OF PROCEDURE: Informed consent was obtained from the patient. He was taken to the operating room and placed supine on the operating table. An appropriate timeout was taken to ensure the patient's identity, the operative site and planned procedure. Two grams of Ancef was initiated prior to skin incision and will be discontinued after a single preoperative dose. Everyone in the room agreed with the timeout and we proceeded. He was prepped from his nipples to his knees. A 21-gauge micropuncture needle was used to access both common femoral arteries, was exchanged using Seldinger technique for a micropuncture sheath after which a 0.035 STORQ wire was introduced. The micropuncture sheath was exchanged for a 6-German sheath. On the left hand side, the 5-German sheath was removed and two Perclose ProGlide sutures were inserted, tagged and not tied down but these were to be used later. An 8-German sheath was introduced. On the right hand side, a 5-German sheath was left in place. The patient was systemically heparinized and throughout the remainder of the case the ACT was greater than 250. The STORQ wire was advanced to the ascending aorta and over the right-hand STORQ wire a pigtail catheter was placed and over the left-hand STORQ wire catheter was used to exchange the STORQ for a Lunderquist wire. The catheter was removed and the intravascular ultrasound was then placed over the Lunderquist through the 8-German sheath. Intravascular ultrasound images were obtained that showed the location of the carotid artery and confirmed the landing zone diameter to be 38-39 mm and suggested that we should use a 44 mm device. The IVUS catheter was removed and the 8-German sheath was removed. Aydee dilator was used to dilate the skin and subcutaneous fat and the arteriotomy and the main device, which was a Medtronic Valiant 44 x 150, was introduced and then angiogram was performed which located the common carotid artery. The device was deployed without difficulty. The delivery system was removed and a 20-German Sentrant sheath was introduced to provide hemostasis. The pigtail catheter was untrapped between the devices and repassed through the lumen of the most recent device and the proximal and distal ends of the new device were ballooned with a Reliant balloon. At completion angiograms showed excellent result without any recoil or extravasation. The wire, catheter and sheath were removed. Perclose were tied down on the left-hand side. Hemostasis was achieved in the groin. There were nice Doppler signals in the feet. The heparin was reversed with protamine and the right groin was closed with Angio-Seal. There were no complications. I was present and scrubbed and performed the entire procedure. MD MARÍA ELENA Castillo/CAROLYN , 11:43 AM , 12:37 PM
--- NOTE | 2018-02-04 12:43 | PD.CONS ---
[facility] Service Critical Care Medicine Consult Requested By Dr. Hopper Reason for Consult Type Ia endoleak after TEVAR and open thoracoabdominal aneurysm repair in 2014 History of aortic arch dissection status post repair in 2014 Primary Care Physician No Primary Care Physician History of Present Illness Patient is a is a 52-year-old male status post aortic aneurysm/dissection repair (Carotid subclavian TEVAR, followed by open thoracoabdominal aneurysm repair) who was admitted earlier this month with left-sided chest pain. Further workup revealed a type 1A endoleak. Dr. Hopper who was originally involved in his aortic arch repair in 2014 and was consulted. Patient was admitted to Dr. Hopper service today TEVAR revision/repair of endoleak. Patient underwent successful TEVAR and deployment of proximal device to correct the endo leak. EBL 75 ml received 1.9 L of crystalloid. I evaluated the patient in the ICU postprocedure. Patient is breathing comfortably. Urine output is adequate. Pain is adequately controlled Review of Systems ROS Limitations: Other (as per HPI) Past Family Social History Allergies: Coded Allergies: No Known Allergies (Unverified Adverse Reaction, Unknown, 02/03/18) Past Medical History History of thoracic aortic aneurysm with dissection Left renal cancer Tobacco abuse Hypertension Past Surgical History s/p previous carotid subclavian TEVAR, followed by open thoracoabdominal aneurysm repair repair at [facility] 2014 Left nephrectomy 2014 s/p cholecystectomy s/p splenectomy Reported Medications Aspirin 81 mg Metoprolol 100 mg q12 Imdur 60 mg daily Lisinopril 5 mg daily Active Ordered Medications Reviewed Family History Mother had metastatic lung cancer, father had pancreatic cancer Social History Long-standing history of half packs of cigarette smoking, occasional pot smoking Physical Exam Vital Signs Vital Signs Date Time Temp Pulse Resp B/P (MAP) Pulse Ox O2 Delivery O2 Flow Rate FiO2 02/04/18 11:00 77 02/04/18 11:00 98 Nasal Cannula 5.00 02/04/18 11:00 97.5 75 14 147/90 (109) 97 152/82 (105) 02/04/18 07:05 97.6 69 20 147/92 (110) 99 Physical Exam GENERAL: This is a well-nourished, well-developed patient, in no apparent distress. Lying comfortably on ICU bed SKIN: No rashes, ecchymoses or lesions. Cool and dry. Previous well-healed surgical scars on left chest and abdomen HEAD: Atraumatic. Normocephalic. EYES: Pupils equal round and reactive. ENT: Uvula midline. Airway patent. NECK: Trachea midline. No JVD. Supple, nontender, no meningeal signs. CARDIOVASCULAR: Regular rate and rhythm without murmurs, gallops, or rubs. RESPIRATORY: Clear to auscultation. Breath sounds equal bilaterally. No wheezes , rales, or rhonchi. Well-healed scar on left chest wall GASTROINTESTINAL: Abdomen soft, non-tender, nondistended. No hepato-splenomegaly , or palpable masses. No guarding. MUSCULOSKELETAL: Extremities without clubbing, cyanosis, or edema. Left groin incision C/D/I. Bilateral dorsalis pedis pulses are palpable NEUROLOGICAL: Awake and alert. Motor and sensory grossly within normal limits. Five out of 5 muscle strength in all muscle groups. Normal speech. Assessment and Plan Assessment and Plan ASSESSMENT: Type Ia endoleak after TEVAR s/p repair with deployment of proximal device History of thoracoabdominal aneurysm repair Hypertension Dyslipidemia History of renal cancer status post left nephrectomy PLAN: NEURO: -Use Tylenol for pain control patient is not complaining of any significant pain at this time RESP: -Nasal cannula oxygen if needed -Pulmonary toilet -DuoNeb every 6 hours as needed -Smoking cessation CV: -Received 1.9L crystalloid during TEVAR -Post TEVAR management per Dr. Hopper -Restart home medications metoprolol and hold lisinopril -Labetalol as needed to keep SBP less than 160. Target SBP 140-160 GI: -Diet when cleared by vascular surgery : -Monitor renal function closely. Strict intake output ID: -Perioperative antibiotics per Dr. Hopper HEME: -Monitor CBC, CMP, coags ENDO: -Electrolyte replacement per CVICU protocol if needed PROPH: -Start Lovenox for DVT prophylaxis in 24 hours. Famotidine for GI prophylaxis Level 2 new consult Code Status Full Discussed Condition With Dr. Hopper, bedside RN Litzy Keys MD Feb 04, 2018 12:43
[2018-02-04] MEDS ORDERED: RESP: ALBUTEROL 2.5 MG/IPRATROPIUM 0.5 MG NEB (PRN) NEB (13:00)
[2018-02-04] MEDS ORDERED: LABETALOL HCL 100 MG/20 ML VIAL IV PUSH PRN ×2 (13:45→17:45)
[2018-02-04] MEDS: HYDROmorphone HCL 2 MG TAB PO PRN ×3 (14:34→23:26)
[2018-02-04 14:41] VITALS: O2SAT 98
[2018-02-04 15:00] VITALS: BP_SYST 152; BP_SYST 165; BP_DIAS 82; BP_DIAS 91; PULSE 57; RESP 17; TEMP 98.1; O2SAT 97
[2018-02-04 19:00] VITALS: BP_SYST 125; BP_SYST 137; BP_DIAS 81; BP_DIAS 83; PULSE 70; PULSE 71; RESP 20; TEMP 98.1; O2SAT 97
[2018-02-04 19:46] VITALS: O2SAT 98
[2018-02-04] MEDS: METOPROLOL TARTRATE 100 MG TAB PO SCH (20:20)
[2018-02-04] MEDS: DOCUSATE SODIUM 50 MG/SENNA 8.6 MG TAB PO SCH (20:21)
[2018-02-04] MEDS: FAMOTIDINE 20 MG TAB PO SCH (20:21)
[2018-02-04] MEDS ORDERED: ATORVASTATIN 40 MG TAB PO SCH (21:00)
[2018-02-04 23:00] VITALS: BP_SYST 131; BP_SYST 142; BP_DIAS 53; BP_DIAS 83; PULSE 69; PULSE 85; RESP 18; TEMP 97.9; O2SAT 97
[2018-02-05 03:00] VITALS: BP_SYST 143; BP_SYST 145; BP_DIAS 65; BP_DIAS 87; PULSE 57; PULSE 67; RESP 18; TEMP 98.7; O2SAT 95
[2018-02-05 04:42] LABS: HEMATOCRIT 36.3 % (39.0-51.0); HEMOGLOBIN 11.8 GM/DL (13.0-17.0); MEAN CELL VOLUME 83.5 FL (80.0-100.0); MEAN CORPUSCULAR HEMOGLOBIN 27.1 PG (27.0-34.0); MEAN CORPUSCULAR HGB CONC 32.4 % (32.0-36.0); MEAN PLATELET VOLUME 7.7 FL (7.0-11.0); PLATELET COUNT 361 TH/MM3 (150-450); RED BLOOD COUNT 4.35 MIL/MM3 (4.50-5.90); RED CELL DISTRIBUTION WIDTH 18.7 % (11.6-17.2); WHITE BLOOD COUNT 13.2 TH/MM3 (4.0-11.0)
[2018-02-05 05:07] LABS: BICARBONATE 26.6 MEQ/L (21.0-32.0); CREATININE 0.88 MG/DL (0.60-1.30)
--- NOTE | 2018-02-05 07:42 | PD.VS.PN ---
Subjective POD #: 1 Procedure(s): TEVAR ([id number]) IVUS L ORTHOTIC FINISH GRINDING TECHNICIAN Perclose R ORTHOTIC FINISH GRINDING TECHNICIAN Angioseal Subjective/Hospital Course 52/M s/p TEVAR POD 1 Pt w/o complaints this am LE warm w/ motor intact Palpable distal pulses present Pt denied abdominal/back pain Objective Vitals/I&O Date Time Temp Pulse Resp B/P (MAP) Pulse Ox O2 Delivery O2 Flow Rate FiO2 02/05/18 03:00 94 Nasal Cannula 1.00 02/05/18 03:00 57 02/05/18 03:00 98.7 67 18 143/87 (105) 95 145/65 (91) 02/05/18 00:21 18 02/04/18 23:00 95 Nasal Cannula 1.00 02/04/18 23:00 85 02/04/18 23:00 97.9 69 18 131/83 (99) 97 142/53 (82) 02/04/18 19:46 98 Nasal Cannula 3.00 02/04/18 19:00 70 02/04/18 19:00 97 Nasal Cannula 2.00 02/04/18 19:00 98.1 71 20 125/83 (97) 97 137/81 (99) 02/04/18 15:00 98.1 57 17 165/82 (109) 97 152/91 (111) 02/04/18 15:00 57 02/04/18 15:00 99 Nasal Cannula 3.00 02/04/18 14:41 98 Nasal Cannula 3.00 02/04/18 11:00 77 02/04/18 11:00 98 Nasal Cannula 5.00 02/04/18 11:00 97.5 75 14 147/90 (109) 97 152/82 (105) 02/05/18 02/05/18 02/05/18 06:59 14:59 22:59 Intake Total 480 ml Output Total 1125 ml Balance -645 ml Exam: GENERAL: A&OX3,NAD,GCS15 SKIN: LE Warm and dry w/ motor intact HEAD: Normocephalic. EYES: No scleral icterus. No injection or drainage. NECK: Supple, trachea midline. No JVD or lymphadenopathy. CARDIOVASCULAR: NSR on CM RESPIRATORY: Breath sounds equal bilaterally. No accessory muscle use. GASTROINTESTINAL: Abdomen S/NT/ R/L groins soft w/o hematoma or swelling MUSCULOSKELETAL: No cyanosis, or edema. Laboratory Laboratory Tests Test 02/05/18 04:12 White Blood Count 13.2 Red Blood Count 4.35 Hemoglobin 11.8 Hematocrit 36.3 Mean Corpuscular Volume 83.5 Mean Corpuscular Hemoglobin 27.1 Mean Corpuscular Hemoglobin Concent 32.4 Red Cell Distribution Width 18.7 Platelet Count 361 Mean Platelet Volume 7.7 Blood Urea Nitrogen 6 Creatinine 0.88 Random Glucose 101 Calcium Level 8.0 Sodium Level 139 Potassium Level 3.6 Chloride Level 106 Carbon Dioxide Level 26.6 Anion Gap 6 Estimat Glomerular Filtration Rate 90 Assessment and Plan Assessment: (1) H/O aortic aneurysm repair (2) History of repair of aneurysm of abdominal aorta using endovascular stent graft Plan Afebrile 52/M s/p TEVAR POD 1 w/o complaints Palpable distal pulses LE warm w/ motor intact Pt w/o abdominal/back pain Plan D/C A line Pt clear for d/c Will arrange out pt f/u Discussed and reviewed post operative care and management Deborah Islas NP [facility] [place] [phone] Discharge Planning Today Deborah Islas Feb 05, 2018 07:42
[2018-02-05] MEDS ORDERED: OXYC1CAP PO (07:45)
--- NOTE | 2018-02-05 07:54 | PD.VS.DC ---
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 Further workup revealed a type 1A endoleak. Patient was admitted for a TEVAR revision/repair of endoleak Procedure(s): TEVAR ([id number]) IVUS L CIRCUS TRAINER Perclose R CIRCUS TRAINER Angioseal Significant Findings GENERAL: A&OX3,NAD,GCS15 SKIN: LE Warm and dry w/ motor intact HEAD: Normocephalic. EYES: No scleral icterus. No injection or drainage. NECK: Supple, trachea midline. No JVD or lymphadenopathy. CARDIOVASCULAR: NSR on CM RESPIRATORY: Breath sounds equal bilaterally. No accessory muscle use. GASTROINTESTINAL: Abdomen S/NT/ R/L groins soft w/o hematoma or swelling MUSCULOSKELETAL: No cyanosis, or edema. 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 Further workup revealed a type 1A endoleak. Patient was admitted for a TEVAR revision/repair of endoleak Pt S/P TEVAR revision POD 0 Pt w/ urinary retention - resolved over time Pt voiding w/o difficulty POD 1 Pt w/o complaints Pt voiding w/o difficulty Pt with palpable R/L DP/PT LE warm w/ motor intact Pt w/o ab/back pain B groins S/NT w/o hematoma Pt clear for D/C Arranged out pt f/u Allergies Coded Allergies Type Severity Reaction Last Updated Verified No Known Allergies Adverse Reaction Unknown 02/03/18 No 02/03/18 02/03/18 02/04/18 02/04/18 02/05/18 02/05/18 06:00 18:00 06:00 18:00 06:00 18:00 Intake Total 1950 ml 1070 ml Output Total 225 ml 1365 ml Balance 1725 ml -295 ml Intake Oral 1030 ml IV Total 40 ml Other 1950 ml Output Urine Total 150 ml 1365 ml Estimated Blood Loss 75 ml Bladder Scan Volume Amount 433 ml 237 ml # Bowel Movements 0 Laboratory Tests Test 02/05/18 04:12 White Blood Count 13.2 TH/MM3 Red Blood Count 4.35 MIL/MM3 Hemoglobin 11.8 GM/DL Hematocrit 36.3 % Mean Corpuscular Volume 83.5 FL Mean Corpuscular Hemoglobin 27.1 PG Mean Corpuscular Hemoglobin Concent 32.4 % Red Cell Distribution Width 18.7 % Platelet Count 361 TH/MM3 Mean Platelet Volume 7.7 FL Blood Urea Nitrogen 6 MG/DL Creatinine 0.88 MG/DL Random Glucose 101 MG/DL Calcium Level 8.0 MG/DL Sodium Level 139 MEQ/L Potassium Level 3.6 MEQ/L Chloride Level 106 MEQ/L Carbon Dioxide Level 26.6 MEQ/L Anion Gap 6 MEQ/L Estimat Glomerular Filtration Rate 90 ML/MIN Orders Procedure Category Date Status Time Type And Screen BBK 02/04/18 Complete 06:31 Lactated Ringer's MED 02/04/18 In Process 1000 Ml Inj (Lr 1000 M 07:15 Sodium Chlorid 0.9% MED 02/04/18 In Process 500 Ml Inj (Ns 500 M 07:15 Metoprolol Tartrate MED 02/04/18 In Process (Lopressor) 07:15 Povidone Iod 5% MED 02/04/18 In Process Antisepsis Kit 07:15 Chlorhexidine 2% MED 02/04/18 In Process Cloth (Chlorhexidine 07:15 Red Blood Cells (Rbc) BBK 02/04/18 In Process 07:09 Protamine Sulfate Inj MED 02/04/18 Complete (Protamine Sulfate 07:48 Heparin Inj (Heparin MED 02/04/18 Complete Inj) 07:49 Heparin-Ns/Pf Inj MED 02/04/18 Complete (Heparin-Ns/Pf Inj) 07:49 Cefazolin 2 Gm Premix MED 02/04/18 Complete (Ancef 2 Gm Premix 07:49 Endovascular Cath CATH 02/04/18 Logged Fentanyl Inj MED 02/04/18 Complete (Fentanyl Inj) 09:15 Nitroglycerin Inj MED 02/04/18 Complete (Nitroglycerin Inj) 09:53 Iohexol 300 Inj MED 02/04/18 Complete (Omnipaque 300 Inj) 09:55 Urinary Catheter SONYA 02/04/18 In Process Management 09:30 Admit To Inpatient ADMITTING 02/04/18 Transmitted Code Status CODE 02/04/18 Transmitted 10:32 Vital Signs (Adult) SONYA 02/04/18 In Process 10:32 Counter Former / SONYA 02/04/18 In Process Telemetry 10:32 Activity Oob Ad Maureen SONYA 02/04/18 In Process 17:00 Activity Bed Rest SONYA 02/04/18 In Process 10:32 Notify Parameters SONYA 02/04/18 In Process 10:32 Precautions SONYA 02/04/18 In Process 10:32 Diet Heart Healthy DIET 02/04/18 Transmitted Lunch Basic Metabolic Panel LAB 02/05/18 Complete (Bmp) 06:00 Cbc No Diff, Includes LAB 02/05/18 Complete Plts 06:00 Case Management CONS 02/04/18 Transmitted Consult Consult Soil Tester CONS 02/04/18 Transmitted Aspirin Chew (Aspirin MED 02/05/18 In Process Chew) 09:00 Famotidine (Pepcid) MED 02/04/18 In Process 21:00 Atorvastatin (Lipitor) MED 3/22/18 In Process 21:00 Scd Bilateral/Knee SONYA 02/04/18 In Process High 10:32 Docusate Sodium-Senna MED 02/04/18 In Process (Christine-Colace) 21:00 Magnesium Hydroxide MED 02/04/18 In Process Liq (Milk Of Magnesi 10:45 Sennosides (Senokot) MED 02/04/18 In Process 10:45 Bisacodyl Supp MED 02/04/18 In Process (Dulcolax Supp) 10:45 Lactulose Liq MED 02/04/18 In Process (Lactulose Liq) 10:45 Inpatient ADMITTING 02/04/18 Transmitted Certification ^ Other Nursing Orders SONYA 02/04/18 In Process 10:32 Enoxaparin Inj MED 02/05/18 In Process (Lovenox Inj) 10:00 Am Admit Pre Op Care [facility] 02/04/18 Complete (Hub Use Only)Inp Phy CONS 02/04/18 Transmitted Cons/Ref Albuterol-Ipratropium MED 02/04/18 In Process Neb (Duoneb Neb) 13:00 Labetalol Inj MED 02/04/18 Complete (Trandate Inj) 13:45 Labetalol Inj MED 02/04/18 In Process (Trandate Inj) 17:45 Metoprolol Tartrate MED 02/04/18 In Process (Lopressor) 21:00 Oxycodone (Roxicodone) MED 02/04/18 In Process 14:15 Hydromorphone MED 02/04/18 In Process (Dilaudid) 14:15 Attending Discharge DISCHARGE 02/05/18 Transmitted Order Vital Signs Date Time Temp Pulse Resp B/P (MAP) Pulse Ox O2 Delivery O2 Flow Rate FiO2 02/05/18 03:00 94 Nasal Cannula 1.00 02/05/18 03:00 57 02/05/18 03:00 98.7 67 18 143/87 (105) 95 145/65 (91) 02/05/18 00:21 18 02/04/18 23:00 95 Nasal Cannula 1.00 02/04/18 23:00 85 02/04/18 23:00 97.9 69 18 131/83 (99) 97 142/53 (82) 02/04/18 19:46 98 Nasal Cannula 3.00 02/04/18 19:00 70 02/04/18 19:00 97 Nasal Cannula 2.00 02/04/18 19:00 98.1 71 20 125/83 (97) 97 137/81 (99) 02/04/18 15:00 98.1 57 17 165/82 (109) 97 152/91 (111) 02/04/18 15:00 57 02/04/18 15:00 99 Nasal Cannula 3.00 02/04/18 14:41 98 Nasal Cannula 3.00 02/04/18 11:00 77 02/04/18 11:00 98 Nasal Cannula 5.00 02/04/18 11:00 97.5 75 14 147/90 (109) 97 152/82 (105) 02/04/18 07:05 97.6 69 20 147/92 (110) 99 Discharge Condition: Good Discharge Disposition: Discharge Home Discharge Instructions: Activities as tolerated May resume all home medications May shower You were prescribed a narcotic pain medication- NO driving as it may cause drowsiness You were prescribed a narcotic pain medication- This may cause constipation- take with an over the counter stool softener We have arranged your f/u appt in 4W with a surveillance CTA C/A/P Any questions or concerns: Call [facility] at [facility] [phone] Deborah Islas Feb 05, 2018 07:54
[2018-02-05 08:00] VITALS: BP_SYST 132; BP_SYST 142; BP_DIAS 70; BP_DIAS 73; PULSE 78; RESP 18; TEMP 98.7; O2SAT 93
--- NOTE | 2018-02-05 08:42 | HHI.CCPN ---
Subjective Remarks/Hospital Course Patient is a is a 52-year-old male status post aortic aneurysm/dissection repair (Carotid subclavian TEVAR, followed by open thoracoabdominal aneurysm repair) who was admitted earlier this month with left-sided chest pain. Further workup revealed a type 1A endoleak. Dr. Hopper who was originally involved in his aortic arch repair in 2014 and was consulted. Patient was admitted to Dr. Hopper service today TEVAR revision/repair of endoleak. Patient underwent successful TEVAR and deployment of proximal device to correct the endo leak. EBL 75 ml received 1.9 L of crystalloid. I evaluated the patient in the ICU postprocedure. Patient is breathing comfortably. Urine output is adequate. Pain is adequately controlled 02/05: No acute events overnight. Peripheral pulses are palpable. Urine output excellent Objective Vital Signs Date Time Temp Pulse Resp B/P (MAP) Pulse Ox O2 Delivery O2 Flow Rate FiO2 02/05/18 03:00 94 Nasal Cannula 1.00 02/05/18 03:00 57 02/05/18 03:00 98.7 18 143/87 (105) 145/65 (91) Intake and Output 02/05/18 02/05/18 02/06/18 08:00 16:00 00:00 Intake Total 480 ml Output Total 1125 ml Balance -645 ml Result Diagram: 02/05/18 0412 02/05/18 0412 Objective Remarks GENERAL: This is a well-nourished, well-developed patient, in no apparent distress. Sitting up in chair SKIN: No rashes, ecchymoses or lesions. Cool and dry. Previous well-healed surgical scars on left chest and abdomen HEAD: Atraumatic. Normocephalic. EYES: Pupils equal round and reactive. ENT: Uvula midline. Airway patent. NECK: Trachea midline. No JVD. Supple, nontender, no meningeal signs. CARDIOVASCULAR: Regular rate and rhythm without murmurs, gallops, or rubs. RESPIRATORY: Clear to auscultation. Breath sounds equal bilaterally. Well- healed scar on left chest wall GASTROINTESTINAL: Abdomen soft, non-tender, nondistended. No hepato-splenomegaly , or palpable masses. No guarding. MUSCULOSKELETAL: Extremities without clubbing, cyanosis, or edema. Left groin incision C/D/I. Bilateral dorsalis pedis pulses are palpable NEUROLOGICAL: Awake and alert. Motor and sensory grossly within normal limits. A/P Assessment and Plan ASSESSMENT: Type Ia endoleak after TEVAR s/p repair (with deployment of proximal device) History of thoracoabdominal aneurysm repair Hypertension Dyslipidemia History of renal cancer status post left nephrectomy PLAN: NEURO: -Use Tylenol for pain control patient is not complaining of any significant pain at this time RESP: -Nasal cannula oxygen if needed -Pulmonary toilet -DuoNeb every 6 hours as needed -Smoking cessation CV: -Received 1.9L crystalloid during TEVAR, maintaining adequate urine output -Post TEVAR management per Dr. Hopper -Restarted metoprolol 02/04 and resume lisinopril today -Labetalol as needed to keep SBP less than 160. Target SBP 140-160 GI: -Heart healthy diet : -Monitor renal function closely. Strict intake output. No Nuñez ID: -Perioperative antibiotics per Dr. Hopper HEME: -Monitor CBC, CMP, coags -Mild leukocytosis is reactive ENDO: -Electrolyte replacement per CVICU protocol if needed PROPH: -Lovenox for DVT prophylaxis in 24 hours. Famotidine for GI prophylaxis Level 1 Okay to transfer out of ICU. Critical care will sign off Litzy Keys MD Feb 05, 2018 08:42
[2018-02-05] MEDS ORDERED: ASPIRIN 81 MG CHEW TAB PO SCH (09:00)
[2018-02-05] MEDS: METOPROLOL TARTRATE 100 MG TAB PO SCH ×2 (09:00→12:30)
[2018-02-05] MEDS ORDERED: LISINOPRIL 5 MG TAB PO SCH (09:00)
[2018-02-05] MEDS: DOCUSATE SODIUM 50 MG/SENNA 8.6 MG TAB PO SCH (09:30)
[2018-02-05] MEDS: FAMOTIDINE 20 MG TAB PO SCH (09:31)
[2018-02-05] MEDS ORDERED: ENOXAPARIN SODIUM 40 MG/0.4 ML SYRINGE SQ SCH (10:00)
[2018-02-05 11:00] VITALS: BP_SYST 132; BP_SYST 142; BP_DIAS 70; BP_DIAS 73; PULSE 78; RESP 18; TEMP 98.7; O2SAT 93
== END 2018-02-05 12:44 | disposition home or self-care (01) | DRG 941 ==
LOC: HSDI 06:31 → HCVI 10:55
PROVIDERS: ADMIT Surgery; ATTEND Surgery
PROC: 02VW3DZ Restriction of Thoracic Aorta, Descending with Intraluminal Device, Percutaneous Approach (ICD-10-PCS; principal; 2018-02-04 09:16)
PROC: B24BZZ3 Ultrasonography of Heart with Aorta, Intravascular (ICD-10-PCS; 2018-02-04 09:16)
DX: T82.330D Leakage of aortic (bifurcation) graft (replacement), subsequent encounter (principal); I10 Essential (primary) hypertension; E78.5 Hyperlipidemia, unspecified; Z85.528 Personal history of other malignant neoplasm of kidney; Z90.5 Acquired absence of kidney; F17.200 Nicotine dependence, unspecified, uncomplicated; F12.90 Cannabis use, unspecified, uncomplicated; Z80.0 Family history of malignant neoplasm of digestive organs; Z80.1 Family history of malignant neoplasm of trachea, bronchus and lung; Z86.79 Personal history of other diseases of the circulatory system
CPT/HCPCS: 80048; 85027; 86850; 86900; 86901; 86920; C1725; C1753; C1769; J0690; J1644; J1650; J2370; J2405; J2710; J2720; J3010; J7040; J7120; Q9967

== ENCOUNTER 2018-02-11 11:41 | Emergency (ER) | payer MEDICAID ==
[~2018-02-11] VITALS: Ht 177.8 cm; Wt 80.0 kg
[~2018-02-11 11:41] MED LIST changes: +OXYC1CAP PO
[2018-02-11 11:45] VITALS: BP 114/65; PULSE 77; RESP 16; TEMP 98; O2SAT 98
[2018-02-11 12:40] LABS: AUTOMATED NEUTROPHIL # 9.8 TH/MM3 (1.8-7.7); BASOPHIL # 0.1 TH/MM3 (0-0.2); BASOPHIL % 0.8 % (0.0-2.0); EOSINOPHIL # 0.5 TH/MM3 (0-0.4); EOSINOPHIL % 3.7 % (0.0-4.0); HEMATOCRIT 38.2 % (39.0-51.0); HEMOGLOBIN 12.3 GM/DL (13.0-17.0); LYMPH % 7.9 % (9.0-44.0); MEAN CELL VOLUME 84.1 FL (80.0-100.0); MEAN CORPUSCULAR HEMOGLOBIN 27.1 PG (27.0-34.0); MEAN CORPUSCULAR HGB CONC 32.2 % (32.0-36.0); MEAN PLATELET VOLUME 7.8 FL (7.0-11.0); MONO % 7.4 % (0.0-8.0); MONOCYTE # 0.9 TH/MM3 (0-0.9); NEUT % 80.2 % (16.0-70.0); PLATELET COUNT 427 TH/MM3 (150-450); RED BLOOD COUNT 4.55 MIL/MM3 (4.50-5.90); RED CELL DISTRIBUTION WIDTH 18.5 % (11.6-17.2); WHITE BLOOD COUNT 12.3 TH/MM3 (4.0-11.0)
--- NOTE | 2018-02-11 12:59 | PD ---
HPI Chief Complaint: Dizziness Time Seen by Provider: 12:45 Travel History International Travel<30 days: No Contact w/Intl Traveler<30days: No Traveled to known affect area: No History of Present Illness HPI 52-year-old male with history of aortic valve disease, recent revision by Dr. Hopper on February 04, presents emergency department for evaluation of acute onset no lightheaded sensation and diaphoresis this morning. Patient states that he was doing nothing. He was just looking at his cell phone when it came on. He states it progressed to where he felt like he was going to pass out so he called 911. He denies any acute pain. He states he always has some residual left-sided chest pain. Denies any fever or chills. He currently feels lightheaded. He is not diaphoretic. No nausea or vomiting. No focal deficits weakness. He has no other symptoms to report. PFSH Past Medical History AAA: Yes (HX OF AORTA DISSECTION ) Arthritis: Yes Asthma: No Autoimmune Disease: No Anxiety: No Depression: No Heart Rhythm Problems: No Cancer: Yes (RENAL LEFT NEPHRECTOMY) Cardiovascular Problems: Yes High Cholesterol: No Chemotherapy: No Chest Pain: Yes Congestive Heart Failure: No COPD: No Cerebrovascular Accident: No Diabetes: No Diminished Hearing: No Endocrine: No GERD: No Genitourinary: No Hepatitis: No Hiatal Hernia: No Hypertension: Yes Immune Disorder: No Musculoskeletal: Yes Neurologic: No Psychiatric: No Reproductive: No Respiratory: No Radiation Therapy: No Renal Failure: No Seizures: No Sleep Apnea: No Thyroid Disease: No Ulcer: Yes Past Surgical History Abdominal Surgery: Yes (SPLENECTOMY,CHOLECYSTECTOMY,NEPHRECTOMY) AICD: No Arteriovenous Shunt: No Body Medical Devices: ENDOVASCULAR STENT Cardiac Surgery: Yes Ear Surgery: No Endocrine Surgery: No Eye Surgery: No Genitourinary Surgery: No Gynecologic Surgery: No Insulin Pump: No Joint Replacement: No Oral Surgery: Yes (MAXIOFACIAL SURGERY) Pacemaker: No Thoracic Surgery: No Other Surgery: Yes (SPLEENECTOMY, LEFT KIDNEY REMOVED) Social History Alcohol Use: Yes Tobacco Use: Yes (/2 PPD) Substance Use: No Allergies-Medications (Allergen,Severity, Reaction): Coded Allergies: No Known Allergies (Unverified Adverse Reaction, Unknown, 02/03/18) Reported Meds & Prescriptions Reported Meds & Active Scripts Active Oxycodone (Oxycodone HCl) 5 Mg Cap 5 Mg PO Q4H PRN Isosorbide Mononitrate ER (Isosorbide Mononitrate) 30 Mg Alka 60 Mg PO DAILY@ 07 [address] (Aspirin) 81 Mg Tabdr 81 Mg PO DAILY Lipitor (Atorvastatin Calcium) 10 Mg Tab 10 Mg PO HS Metoprolol Tartrate 100 Mg Tab 100 Mg PO BID 30 Days Lisinopril 5 Mg Tab 5 Mg PO DAILY Review of Systems Except as stated in HPI: all other systems reviewed are Neg Physical Exam Narrative GENERAL: Well-nourished male patient, lying in bed, in no acute distress. SKIN: Focused skin assessment warm/dry. HEAD: Atraumatic. Normocephalic. EYES: Pupils equal and round. No scleral icterus. No injection or drainage. ENT: No nasal bleeding or discharge. Mucous membranes pink and moist. NECK: Trachea midline. No JVD. CARDIOVASCULAR: Regular rate and rhythm. RESPIRATORY: No accessory muscle use. Clear to auscultation. Breath sounds equal bilaterally. GASTROINTESTINAL: Abdomen soft, non-tender, nondistended. Hepatic and splenic margins not palpable. MUSCULOSKELETAL: No obvious deformities. No clubbing. No cyanosis. No edema. NEUROLOGICAL: Awake and alert. No obvious cranial nerve deficits. Motor grossly within normal limits. Normal speech. PSYCHIATRIC: Appropriate mood and affect; insight and judgment normal. Data Data Last Documented VS Vital Signs Date Time Temp Pulse Resp B/P (MAP) Pulse Ox O2 Delivery O2 Flow Rate FiO2 02/11/18 12:00 Room Air 02/11/18 11:45 98.0 77 16 114/65 (81) 98 Orders Orders Electrocardiogram (02/11/18 12:04) Complete Blood Count With Diff (02/11/18 12:04) Comprehensive Metabolic Panel (02/11/18 12:04) Iv Access Insert/Monitor (02/11/18 12:04) Troponin I (02/11/18 12:47) Ckmb (Isoenzyme) Profile (02/11/18 12:47) Coag Profile (02/11/18 12:47) Labs Laboratory Tests Test 02/11/18 12:30 02/11/18 13:00 White Blood Count 12.3 TH/MM3 Red Blood Count 4.55 MIL/MM3 Hemoglobin 12.3 GM/DL Hematocrit 38.2 % Mean Corpuscular Volume 84.1 FL Mean Corpuscular Hemoglobin 27.1 PG Mean Corpuscular Hemoglobin Concent 32.2 % Red Cell Distribution Width 18.5 % Platelet Count 427 TH/MM3 Mean Platelet Volume 7.8 FL Neutrophils (%) (Auto) 80.2 % Lymphocytes (%) (Auto) 7.9 % Monocytes (%) (Auto) 7.4 % Eosinophils (%) (Auto) 3.7 % Basophils (%) (Auto) 0.8 % Neutrophils # (Auto) 9.8 TH/MM3 Lymphocytes # (Auto) 1.0 TH/MM3 Monocytes # (Auto) 0.9 TH/MM3 Eosinophils # (Auto) 0.5 TH/MM3 Basophils # (Auto) 0.1 TH/MM3 CBC Comment DIFF FINAL Differential Comment Blood Urea Nitrogen 8 MG/DL Creatinine 1.07 MG/DL Random Glucose 92 MG/DL Total Protein 7.2 GM/DL Albumin 2.9 GM/DL Calcium Level 9.1 MG/DL Alkaline Phosphatase 72 U/L Aspartate Amino Transf (AST/SGOT) 23 U/L Alanine Aminotransferase (ALT/SGPT) 25 U/L Total Bilirubin 0.4 MG/DL Sodium Level 139 MEQ/L Potassium Level 3.8 MEQ/L Chloride Level 106 MEQ/L Carbon Dioxide Level 26.5 MEQ/L Anion Gap 7 MEQ/L Estimat Glomerular Filtration Rate 72 ML/MIN Prothrombin Time 11.3 SEC Prothromb Time International Ratio 1.1 RATIO Activated Partial Thromboplast Time 23.8 SEC MDM Medical Decision Making Medical Screen Exam Complete: Yes Emergency Medical Condition: Yes Medical Record Reviewed: Yes Differential Diagnosis ACS versus anxiety versus electrolyte abnormality Narrative Course 52-year-old male presents to emergency department for evaluation. Patient appears well at this time. He does report lightheaded sensation persisting. His vital signs are stable. Workup is initiated in triage ambulance help. Once a medical bed becomes available, patient will be transferred and care assumed by that provider. Condition: Stable Farzaneh Hassan Feb 11, 2018 12:59
[2018-02-11 13:08] LABS: ALBUMIN 2.9 GM/DL (3.4-5.0); AST (GOT) 23 U/L (15-37); BICARBONATE 26.5 MEQ/L (21.0-32.0); BLOOD UREA NITROGEN 8 MG/DL (7-18); CALCIUM 9.1 MG/DL (8.5-10.1); CHLORIDE 106 MEQ/L (98-107); CREATININE 1.07 MG/DL (0.60-1.30); GLOMERULAR FILTRATION RATE 72 ML/MIN (>89); GLUCOSE,RANDOM 92 MG/DL (74-106); SODIUM (NA) 139 MEQ/L (136-145)
[2018-02-11 13:13] LABS: ALKALINE PHOSPHATASE 72 U/L (45-117); ALT (GPT) 25 U/L (12-78); TOTAL BILIRUBIN ADULT 0.4 MG/DL (0.2-1.0); TOTAL PROTEIN 7.2 GM/DL (6.4-8.2)
[2018-02-11 13:34] LABS: INTERNATIONAL NORMALIZED RATIO 1.1 RATIO; PROTHROMBIN TIME - PATIENT 11.3 SEC (9.8-11.6)
--- NOTE | 2018-02-11 17:34 | RADRPT ---
EXAM DATE/TIME: 02/11/2018 16:59 [facility] COMPARISON: CTA THORACIC ABDOMINAL AORTA W 3D RECON, January 14, 2018, 12:39. CHEST SINGLE AP, January 14, 2018, 10: 02. INDICATIONS : Palpitations- Shortness of breath and chest pain. MEDICAL HISTORY : Aneurysm, abdominal. Hypertension. Left kidney cancer. SURGICAL HISTORY : Splenectomy. Cholecystectomy. Abdominal aortic aneurysm repair. ENCOUNTER: Initial ACUITY: 1 day PAIN SCORE: 10/10 LOCATION: Bilateral chest FINDINGS: A thoracic endograft is present associated with thoracic aneurysm. Configuration is grossly unchanged . The lungs are stable and grossly clear. No effusion suspected. Cardiac size and mediastinal contour s are grossly unchanged. CONCLUSION: Stable chest appearance Massimo Dupree MD on February 11, 2018 at 17:28 Board Certified Radiologist. This report was verified electronically.
[2018-02-11 17:53] VITALS: BP_SYST 125; BP_SYST 130; BP_DIAS 72; BP_DIAS 74; BP_DIAS 79
[2018-02-11 18:43] LABS: TROPONIN I LESS THAN 0.02 NG/ML (0.02-0.05)
--- NOTE | 2018-02-12 11:36 | EKG ---
Date Performed: 02/11/2018 Time Performed: 12:30:12 PTAGE: 52 years EKG: Sinus rhythm NORMAL ECG PREVIOUS TRACING : 01/14/2018 16.51 Since the previous tracing, no significant change noted DOCTOR: Efrain Dalton Interpretating Date/Time 02/12/2018 11:31:17
== END 2018-02-11 20:11 | disposition home or self-care (01) ==
LOC: NEDAMB 11:41 → NEPC 20:11
DX: R42 Dizziness and giddiness (principal); R07.9 Chest pain, unspecified; I35.8 Other nonrheumatic aortic valve disorders; I10 Essential (primary) hypertension; Z85.528 Personal history of other malignant neoplasm of kidney; Z86.79 Personal history of other diseases of the circulatory system; F17.200 Nicotine dependence, unspecified, uncomplicated
CPT/HCPCS: 71045; 80053; 82550; 84484; 85025; 85610; 85730; 93005; 99285